=== PATIENT | female | born 1970 | race Caucasian/White ===

== ENCOUNTER 2023-12-13 16:57 | Emergency (ER) | payer SELFPAY ==
[2023-12-13 18:03] VITALS: BP 175/81; PULSE 55; RESP 16; TEMP 36.6; O2SAT 100; BMI 23.4
--- NOTE | 2023-12-13 18:07 | ED.EXTPRO ---
HPI - Extremity Problem General Chief complaint: Skin/Abscess/Foreign Body Stated complaint: ? right foot infection Time Seen by Provider: 12/13/23 18:10 Source: patient Mode of arrival: ambulatory Limitations: no limitations History of Present Illness ED Provider: Audrey Perkins PA-C HPI Narrative: 53 yo female presents to the ER for evaluation of right lateral foot redness and swelling that started yesterday and got worse today. she was seen yesterday by her outpatient coding specialist for dry, cracked heels which she routinely sees them for. she states she had mild swelling and redness yesterday along with a fluid filled blister. today the redness and swelling worsened. she popped the blister and clear fluid came out. no injuries. no recent insect bites. no fevers. no hx inflammatory arthritis or gout. MD Complaint: joint swelling and joint pain Onset (ago): day(s) Pain Consistency: constant Location: right and lower extremity Severity scale (1-10): 5 Quality: aching Radiation: proximal Relieving factors: immobilization, elevation and rest Exacerbating factors: range of motion, weight bearing, walking and palpation Associated symptoms: denies other symptoms Related Data Previous Rx's ?Medication ?Instructions ?Recorded cephalexin 500 mg capsule 500 mg PO Q6H 7 days #28 caps 12/13/23 doxycycline monohydrate 100 mg 100 mg PO BID #14 caps 12/13/23 capsule Allergies Allergy/AdvReac Type Severity Reaction Status Date / Time No Known Allergies Allergy Verified 12/13/23 18:04 Review of Systems Review of Systems: Yes all other systems are reviewed and are negative PMFSH Social History Social History Advance Directives: Yes Advance Directives Information Provided: No Advance Directives on File: No Do you have a plan to hurt others: No Plan Physical Exam Vital Signs: Vital Signs: Last Vital Signs Temp 97.9 F 12/13/23 18:03 Pulse 55 12/13/23 18:03 Resp 16 12/13/23 18:03 BP 175/81 H 12/13/23 18:03 Pulse Ox 100 12/13/23 18:03 O2 Del Method Room Air 12/13/23 18:03 BMI result Body Mass Index 23.4 Appearance: Alert. Oriented X3. No acute distress. HEENT: normal inspection CVS: Normal heart rate and rhythm. Pulses normal. Respiratory: No respiratory distress. Skin: Skin warm and dry. Normal skin color. Normal skin turgor. No rashes. Extremities: right lateral foot and distal ankle with erythema, warmth, swelling, small fluid filled blister on the border of the heel. Neuro: Oriented X 3. No motor deficit. No sensory deficit. Medical Decision Making Medical Decision Making MDM Narrative: 53 yo female presenting for a possible infection in her right lateral foot/ankle. FROM of the ankle and foot. no evidence of septic joint or gout. minimal tenderness. blister w/ clear drainage. area is warm and erythematous c/w cellulitis. no calf pain or swelling to suggest DVT. exam c/w cellulitis. will treat with PO abx. area marked with skin marker. comfortable with discharge home with close monitoring and outpatient follow up. return precautions were discussed Differential Diagnosis Differential Diagnoses: The differential diagnosis associated with the presentation includes cellulitis, septic joint, gout Admission/Observation Consideration of admission/observation: Escalation of care including admission/observation considered Tests considered The following testing was considered but not selected: basic lab workup and XR considered Prescription Management I considered prescription management with: Pain Medication and Antibiotic Critical Care Time Critical Care Time Critical Care Time: No Discharge Plan Discharge Clinical Impression: Cellulitis Patient Disposition: Home, Self-Care Instructions: Cellulitis (DC), Warm Compress or Soak (ED) Additional Instructions: Take the prescribed antibiotics as directed, complete the entire course and do not miss any doses Use warm compresses to the area 2-3 times per day If you develop new or worsening symptoms call 911 or come back to the ER for further evaluation. Prescriptions: New doxycycline monohydrate 100 mg capsule 100 mg PO BID Qty: 14 0RF cephalexin 500 mg capsule 500 mg PO Q6H 7 Days Qty: 28 0RF Referrals: Freeman Farley DO [Primary Care Provider] - Stand Alone Forms: Work/School Release Discharge Date/Time: 12/13/23 18:21 Print Language: Polish
== END 2023-12-13 18:21 | disposition home or self-care (01) ==
PROVIDERS: Emergency Provider Emergency Medicine; PCP Family Medicine
DX: L03.115 Cellulitis of right lower limb (principal); M79.671 Pain in right foot
CPT/HCPCS: 99281; 99283

== ENCOUNTER 2024-04-22 05:37 | Emergency (ER) | payer BC, SELFPAY ==
--- NOTE | ~2024-04-22 | XR_ITS ---
CLINICAL HISTORY: shortness of breath 2 view chest x-ray Comparison: None Findings: Faint right lower lobe density seen best on the lateral view. Normal size heart. No acute fracture. IMPRESSION: Faint right lower lobe density. Correlation for early pneumonia. This document has been electronically signed by: German Kam MD on 04/22/2024 06:13:03
[2024-04-22 05:39] VITALS: BP 142/82; PULSE 77; RESP 20; TEMP 37; O2SAT 99; BMI 23.4
[2024-04-22 07:08] LABS: Influenza A PCR NEGATIVE (Negative); Influenza B PCR POSITIVE (Negative); Resp Syncy Virus RNA Qual PCR NEGATIVE (Negative); SARS COV2 PCR INHOUSE NEGATIVE (Negative)
--- NOTE | 2024-04-22 09:39 | ED.SOB ---
HPI - SOB/Dyspnea General Chief Complaint: Dyspnea Stated Complaint: diff breathing Time Seen by Provider: 04/22/24 09:10 Source: patient, RN notes reviewed and old records reviewed Mode of arrival: ambulatory History of Present Illness ED Provider: Eulalia Lewis PA-C HPI Narrative: 54-year-old female with a past medical history of Influenza B (04/14/24) presenting to the ED complaining of persistent myalgias, fatigue, SOB since having the flu. Denies fever, chills, chest pain, travel, pedal edema, abdominal pain, nausea/vomiting. + multiple sick contacts Related Data Previous Rx's ?Medication ?Instructions ?Recorded cephalexin 500 mg capsule 500 mg PO Q6H 7 days #28 caps 12/13/23 doxycycline monohydrate 100 mg 100 mg PO BID #14 caps 12/13/23 capsule albuterol sulfate 90 mcg/actuation 2 puff inhalation Q4-6H PRN 04/22/24 aerosol inhaler shortness of breath or wheezing #6.7 grams amoxicillin 500 mg tablet 1,000 mg (2 x 500 mg) PO TID 7 04/22/24 days #42 tabs azithromycin 250 mg tablet See Rx Instructions PO .COMPLEX #6 04/22/24 tabs benzonatate 100 mg capsule 100 mg PO TID PRN cough #14 caps 04/22/24 Allergies Allergy/AdvReac Type Severity Reaction Status Date / Time No Known Allergies Allergy Verified 04/22/24 05:41 Review of Systems Review of Systems: Yes all other systems are reviewed and are negative Constitutional: Constitutional: Reports as per [facility] Past Medical History Attestation statement: The following information was validated with the patient. Source: old records reviewed Social History Social History Advance Directives: No Advance Directives Information Provided: Yes Do you have a plan to hurt others: No Plan Physical Exam Vital Signs: Vital Signs: Last Vital Signs Temp 98.4 F 04/22/24 10:47 Pulse 70 04/22/24 10:47 Resp 16 04/22/24 10:47 BP 112/67 04/22/24 10:47 Pulse Ox 99 04/22/24 05:39 O2 Del Method Room Air 04/22/24 10:47 BMI result Body Mass Index 23.4 Const: General: cooperative, healthy appearing and no acute distress Orientation/consciousness: patient oriented x3 Limitations: no limitations HEENT: Other: + left-sided submandibular lymphadenopathy Head: Yes normal to inspection and Yes atraumatic Ears: hearing grossly normal bilaterally General nose exam: Normal external nose present Face and sinus: Yes normal facial exam Mouth: Normal oral and palatal mucosa present Throat: Yes posterior oropharynx normal, Yes tonsils normal, Yes uvula midline, No peritonsillar mass and No uvular edema Eyes: General: appearance normal, both eyes and all related structures EOM: EOMs intact bilaterally Neck: Neck: Yes normal visual inspection and Yes no meningeal signs Resp: Effort & Inspection: normal respiratory effort and no respiratory distress Auscultation: clear to auscultation bilaterally and crackles on the right at the base Cardio: Rate: regular rate Heart sounds: S1 normal heart sound present and S2 normal heart sound present GI: Inspection: Yes normal to inspection Palpation (GI): Soft to palpation, nontender, no guarding and not rigid : General: Yes no CVA tenderness Back/Spine/Pelvis: Back: no CVA tenderness Skin: Rashes: no rashes Wounds: no wounds Neuro: General: patient oriented x3, tone normal and no meningeal signs Cranial nerves: Yes CN's II-XII intact bilaterally Gait exam (Neuro): Normal gait present Extrem: General: Yes normal to inspection Course Course Course Narrative: -influenza B positive XR chest 2V IMPRESSION: Faint right lower lobe density. Correlation for early pneumonia. Results discussed with patient including worrisome signs and symptoms and strict return precautions, and when to return to the emergency department. They verbalized understanding and feel safe for discharge at this time. Medications Administered Discontinued Medications Generic Name Dose Route Start Last Admin Trade Name Freq PRN Reason Stop Dose Admin Albuterol/Ipratropium 3 ml 04/22/24 09:34 04/22/24 09:50 Albuterol/Iprat 2.5/0.5mg 3 Ml Ampul.Neb INHALE 04/22/24 09:35 3 ml ONCE ONE Administration Medical Decision Making Medical Decision Making [facility] Narrative: 0943: 54-year-old female with a past medical history of Influenza B (04/14/24) presenting to the ED complaining of persistent myalgias, fatigue, SOB since having the flu. On exam vital signs stable, afebrile, NAD, nontoxic appearing, talking in complete sentences, no respiratory distress, right basilar crackles appreciated. Concern for continued viral illness vs pneumonia. Lower suspicion for ACS/PE. Unlikely severe sepsis. Plan: Viral testing, CXR, albuterol neb per patient request Please refer to course for remaining clinical decision making, interpretation of labs/imaging results, and discussions with consultants and/or family members. Differential Diagnosis Differential Diagnoses: The differential diagnosis associated with the presentation includes As above Admission/Observation Consideration of admission/observation: Escalation of care including admission/observation considered Lab Data MDM Lab Attestation statement: I reviewed the patient's lab results. Labs: Lab Results 04/22/24 Range/Units 06:08 Influenza Type A (PCR) NEGATIVE (Negative) Influenza Type B (PCR) POSITIVE A (Negative) RSV RNA Qual (PCR) NEGATIVE (Negative) SARS-CoV-2 RNA (RT-PCR) NEGATIVE (Negative) Independent Interpretation I performed an independent interpretation of an: Plain X-Ray Radiology Impression Discussion of test interpretation with radiology: I have reviewed the radiologist's reading. External Record Review External record reviewed: Inpatient record, Office record, Outpatient record, Prior outpatient labs, Prior outpatient radiology, Primary care record and Outside ED record Tests considered The following testing was considered but not selected: As above Prescription Management I considered prescription management with: Pain Medication, Antiviral and Antibiotic Social Determinants Patient?s care significantly limited by Social Determinants of Health including: Other Social Determinant of Health Discharge Plan Discharge Clinical Impression: Pneumonia, Influenza Patient Disposition: Home, Self-Care Instructions: Influenza (DC), Community Acquired Pneumonia (DC) Additional Instructions: You have a the flu and pneumonia. Amoxicillin and azithromycin or antibiotics please take as prescribed until completion Navyasallakshmi Knox for cough, take as needed No antibiotics are indicated at this time Make sure you are staying hydrated. Drink plenty of fluids. Rest Alternate Tylenol and Motrin at home as needed for body aches and fever Follow-up with your doctor. If symptoms persist or worsen return to the emergency department *If you are a child & not tolerating liquid or urinating for more than 6 hours, or fevers are uncontrolled with medications at home, return to the emergency department* Prescriptions: New amoxicillin 500 mg tablet 1,000 mg PO TID 7 Days Qty: 42 0RF azithromycin 250 mg tablet See Rx Instructions .ROUTE .COMPLEX Qty: 6 0RF Rx Instructions: take 500 mg today (day 1), then 250 mg for 4 days (days 2-5) benzonatate 100 mg capsule 100 mg PO TID PRN (Reason: cough) Qty: 14 0RF albuterol sulfate 90 mcg/actuation HFA aerosol inhaler 2 puff inhalation Q4-6H PRN (Reason: shortness of breath or wheezing) Qty: 6.7 0RF No Action doxycycline monohydrate 100 mg capsule 100 mg PO BID Qty: 14 0RF cephalexin 500 mg capsule 500 mg PO Q6H 7 Days Qty: 28 0RF Referrals: Freeman Farley DO [Primary Care Provider] - 3 days Stand Alone Forms: Work/School Release Interventions: ED Discharge Assessment Last Done: 04/22/24 10:47 Discharge Date/Time: 04/22/24 10:56 Print Language: Danish
--- OUTSIDE RECORDS SUMMARY | 2024-04-22 09:44 | XMS_ITS | Data Portability ---
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 Plan of Treatment Reminders Order Date Submit Date Provider Last Modified By Organization Details Last Modified Time Details Appointments None recorded. Lab rapid strep group A, throat 2022 023 [email or web address] [facility], [address] [place] [address], [id number], 09:14:21 Referral None recorded. Procedures None recorded. Surgeries None recorded. Imaging None recorded. Medication Orders Augmentin 875 mg-125 mg tablet 2022 023 [facility] #[id number], [address] [place], [address], 3 09:14:25 prednisone 20 mg tablet 2022 023 [facility] #[id number], [address] [place], [address], 3 09:14:24 fexofenadin e-pseudoeph edrine ER 180 mg-240 mg tablet,ext. release 24 hr 2022 023 [facility] #[id number], [address] [place], [address], 3 09:14:25 Patient TargetsNo targets recorded. Patient Instructions Encounter Date Encounter Id Patient Instructions Last Modified By Organization Details Last Modified Time 07/09/2022 [id number] Acute Sinusitis: Care Instructions Not available 07/09/2022 09:14:21 Sinusitis is an infection of the lining of the sinus cavities in your head. Sinusitis often follows a cold. It causes pain and pressure in your head and face. In most cases, sinusitis gets better on its own in 1 to 2 weeks. But some mild symptoms may last for several weeks. Sometimes antibiotics are needed. if you are having problems. It's also a good idea to know your test results and keep a list of the medicines you take. How can you care for yourself at home? Take an yqog-zhs-mfvucnt pain medicine. Avoid Ibuprofen, Aleve and Aspirin if . If the doctor prescribed antibiotics, take them as directed. Do not stop taking them just because you feel better. You need to take the full course of antibiotics. Be careful when taking qkqp-bdy-curwjno cold or influenza (flu) medicines and Tylenol at the same time. Many of these medicines have acetaminophen, which is Tylenol. Read the labels to make sure that you are not taking more than the recommended dose. Too much acetaminophen (Tylenol) can be harmful. Breathe warm, moist air from a steamy shower, a hot bath, or a sink filled with hot water. Avoid cold, dry air. Using a humidifier in your home may help. Follow the directions for cleaning the machine. Use saline (saltwater) nasal washes. This can help keep your nasal passages open and wash out mucus and bacteria. You can buy saline nose drops at a grocery store or drugstore. Or you can make your own at home by adding 1 teaspoon (5 millilitres) of salt and 1 teaspoon (5 millilitres) of baking soda to 2 cups (500 mL) of distilled water. If you make your own, fill a bulb syringe with the solution, insert the tip into your nostril, and squeeze gently. Blow your nose. Put a hot, wet towel or a warm gel pack on your face 3 or 4 times a day for 5 to 10 minutes each time. Try a decongestant nasal spray like oxymetazoline (Drixoral). Do not use it for more than 3 days in a row. Using it for more than 3 days can make your congestion worse. Not available 07/09/2022 09:13:32 Reason for Referral None Reported. Results Created Date Observation Date Name Description Value Unit Range Abnormal Flag Note LastModifiedBy Organization Detail LastModifiedTime 07/10/1907/09/2022 rapid strep group A, throa t Unknown Analyte Normal = Negati ve Not Available [address] [address] [place], [address], 07/09/2022 08:56:21 07/10/1907/09/2022 rapid strep group A, throa t Unknown Analyte negati ve Not Available [address] [address] [place], [address], 07/09/2022 08:56:21 Result Notes None recorded. Problems Name Problem SNOMED Code Status Onset Date Resolution Date Notes Provider Name and Address Organization Details Recorded Time Environmental allergy [id number] Active 2022 REBEKAH Zapien - [facility] 08:55:34 Problem Notes None recorded. Medical Equipment None Reported. Allergies No known drug allergies Medications Name Sig Start Date Stop Date Status Note LastModified by Organization Details LastModified Time amoxicillin 500 mg capsule TAKE 4 CAPSULES BY MOUTH 1 HOUR PRIOR TO DENTAL APPOINTME NT 07/09 completed Not Available Not Available Not Available prednisone 20 mg tablet TAKE 2 TABLETS EVERY DAY BY MOUTH IN THE MORNING FOR 3 DAYS. active Not Available Not Available No t Available alprazolam 0.25 mg tablet TAKE 1 TABLET BY MOUTH EVERYDAY AT BEDTIME active Not Available Not Available No t Available sertraline 50 mg tablet TAKE 1 TABLET BY MOUTH EVERY DAY active Not Available Not Available No t Available amoxicillin 875 mg-potassiu m clavulanate 125 mg tablet TAKE 1 TABLET BY MOUTH EVERY 12 HOURS WITH MEALS FOR 10 DAYS active Not Available Not Available No t Available Candis-D 24 Hour 180 mg-240 mg tablet,exte nded release TAKE 1 TABLET EVERY DAY BY MOUTH IN THE EVENING FOR 10 DAYS. active Not Available Not Available No t Available aspirin active Not Available Not Avail able Not Available lorazepam active Not Available Not Queta ilable Not Available sodium fluoride 1.1 %-potassium nitrate 5 % dental paste BRUSH TEETH 1 TIME DAILY, DO NOT RINSE 07/09 completed Not Available Not Available Not Available Vagifem 10 mcg vaginal tablet INSERT 1 TABLET VAGINALLY DAILY FOR 14 DAYS THEN TWICE WEEKLY 07/09 completed Not Available Not Available Not Available Vitals Date Recorded Body height Body mass index (BMI) Body weight Pain severity - 0-10 verbal numeric rating [Score] - Reported Respiratory rate Oxygen saturation Oxygen saturation in Arterial blood by Pulse oximetry Heart rate Body temperature Systolic blood pressure Diastolic blood pressure Provider Name and Address Organization Details Last Updated DateTime 3 167.64 cm 23.4 kg/m2 64276.8 9 g 9 20 /min 98 % 98 % 63 /min 98 [degF] 117 mm[Hg] 81 mm[Hg] Marie Wheat YEOXIN [facility] 08:58:03 Social History Question Answer Notes LastModified by [facility] Details LastModified Time Tobacco Smoking Status Never Smoker Marie son PA [facility] 07/09/2022 08:55:57 What Is Your Level Of Alcohol Consumption? None Information not available 07/09/2022 Have You Had Direct Contact, Or Contact During Intimacy, With Monkeypox Rash, Scabs, Or Body Fluids From A Person With Monkeypox? No Information not available 07/09/2022 Do You Use Any Illicit Or Recreational Drugs? No Information not available 07/09/2022 Have You Recently Traveled Abroad? No Information not available 07/09/2022 Do You Or Have You Ever Used Any Other Forms Of Tobacco Or Nicotine? No Information not available 07/09/2022 Sex: Unknown Functional Status None recorded. Mental Status None recorded. Family History Relationship Description Onset Age of this Age Resolved Age Notes LastModified by Organization Details LastModified Time Father No current problems or disability Not available 07/09 08:55:42 Mother No current problems or disability Not available 07/09 08:55:42 Medical History No medical history recorded. Gynecological HistoryNo gynecological history recorded. Obstetrics History GPAL:G 0 P 0 0 0 0 Past Encounters Encounter ID Performer Location Encounter Start Date Encounter Closed Date Diagnosis/Indication Diagnosis SNOMED-CT Code Diagnosis ICD10 Code Diagnosis Note [id number] [address] [facility] [place] [address] 11/01/2020 13:05:05 11/01/2020 15:43:41 [id number] [address] [facility] [place] [id number] 11/24/2016 08:07:30 11/24/2016 09:03:18 [id number] [address] [facility] [place] [address] 05/13/2016 09:20:16 05/13/2016 10:53:11 [id number] [address] [facility] [place] [id number] 11/23/2016 15:23:31 11/23/2016 16:49:52 [id number] Roámn Calle NP [address] [facility] [place] [address] 07/09/2022 08:11:47 07/09/2022 09:18:58 Acute sinusitis 27659539 J01.90 Health Concerns Section Related Observation LastModified by Organization Detai ls LastModified Time None Recorded Concern Status LastModified by Organization Details LastModified Time None Recorded Advance Directives Directive None Recorded Payers Encounter Date Sequence Insurance Name Policy Number Policy Edwards Covered Member ID Edwards Member ID Guarantor Name 05/13/2016 1 [facility] [id number] Chuck Millard [id number] Bomb[address]ier 11/01/2020 1 [facility] [place] [id number] Chuck Hardwickardier [id number] Bombardier 07/09/2022 1 [facility]: [facility] [id number] Chuck Hardwickardier [id number] [address] Bombardier Notes Date Note Type Note Provider Name and Address Organization Details Recorded Time 07/09/2022 text/html Sinus Complaints UCReported bypatient.Location: sinus pain;facial pain;sinus pressure Associated Symptoms:no fever; no nausea or vomiting; no sore throat; no ear fullness; no nasal itching; no eye itching; no dizziness;difficult y breathing;Post nasal drip;nasal passage blockage;cough Onset/Timing:worse in am; worse in pm Quality:minimal discomfort;worsenin g; clear Duration:frequent Severity:moderate Context:no recent upper respiratory infection; no recent sick contacts; not worse with seasonal allergen exposure;worse with environmental exposure Risk Factors:no current smoking or tobacco use; no history of nasal trauma Alleviating factors:oral steroids Aggravating factors:worse during an upper respiratory infection (a cold); worse with excess fatigue Prior Treatmentoral decongestant Román Calle NP [address] [place], [address], [place] - [facility] 07/09/2022 09:14:50 OBGyn Episode No OBEpisode recorded.
--- OUTSIDE RECORDS SUMMARY | 2024-04-22 09:44 | XMS_ITS | Continuity of Care Document ---
Author Organization [facility] [place] lt Address [address] [place] [address]- Care Team Providers Care Rn Case Management Name Role Phone Freeman Farley DO Primary Care Physician [place] [facility] [place] - 03/27/24 [facility] Adult [address] [place] [address]- Attending Physician: AdmBryan coughlin Admitting Physician: AdmtrBryan Referring Physician: Admtr [id number] Encounter Type: Triage Allergies, Adverse Reactions, Alerts Substance Criticality Severity Reaction Reaction Severity Status shellfish Active Immunizations Given and Recorded Vaccine Date Status Refusal Reason influenza virus vaccine, inactivated 1 01/02/24 Gi jeffery influenza virus vaccine, inactivated 2 01/31/23 Gi jeffery influenza virus vaccine, inactivated 11/17/21 Greg rded influenza virus vaccine, inactivated 12/13/20 Greg rded influenza virus vaccine, inactivated 12/06/17 Greg rded influenza virus vaccine, inactivated 3 11/28/16 Re corded influenza virus vaccine, inactivated 4 12/02/14 Re corded influenza virus vaccine, inactivated 5 12/18/13 Gi jeffery influenza virus vaccine, inactivated 04/29/13 Give n SARS-CoV-2 (COVID-19) mRNA-1273 vaccine 12/08/21 R ecorded tetanus-diphtheria toxoids (Td) 08/04/21 Given tetanus-diphtheria toxoids (Td) 11/23/16 Recorded SARS-CoV-2 (COVID-19) mRNA BNT-162b2 vac 02/25/21 Recorded SARS-CoV-2 (COVID-19) mRNA BNT-162b2 vac 05/20/20 Recorded SARS-CoV-2 (COVID-19) mRNA BNT-162b2 vac 04/28/20 Recorded Influenza Virus Vaccine (oldterm) 01/09/20 Recorde d Influenza Virus Vaccine (oldterm) 11/25/18 Recorde d hepatitis B adult vaccine 03/23/17 Given hepatitis B adult vaccine 6 02/23/17 Given influ virus vac, H1N1, inactive(oldterm) 7 12/11/11 Given FluLaval (oldterm) 11/11/11 Given Tet/Diphth/Acel, Pertussis (oldterm) 08/30/11 Give n 1Result Comment: Flu Regular Dose ND: 88647-280-81 2Result Comment: 13890-323-68 Check list done 3Result Comment: [11/29/2016] RECIEVED AT [employer] [facility] 4Result Comment: [12/03/2014] GIVEN AT [employer] [facility] 5Admin Note: [employer] [facility] 6Result Comment: [02/23/2017] [facility]:[id number] 7Admin Note: left deltoid Problem List Condition Confirmation Course Effective Dates Status Health St at Informant Adjustment disorder with anxiety Confirmed Active Allergic Rhinitis Confirmed Active Alopecia areata kenalog Confirmed Active Congenital Cataract, Unspecified Confirmed Active Eczema Confirmed Active Eosinophilia Confirmed 03/14/19 Active Family history of cervical cancer 1 Confirmed Active H/O angioedema ? nuts Confirmed 11/18/20 Active Situational insomnia Confirmed 08/11/20 Active Insomnia Confirmed Active Localized deposits of fat 2 Confirmed Active Paget's disease of bone left iliac 2020 MRI/Endocrinology 2021/monitor re symptoms/alk phos Confirmed 12/13/20 Active Panic attack Confirmed Active Physical exam Confirmed Active S/P AVRBovine 2011/abx propohylaxis aware Confirmed Active Situational anxiety Confirmed Active Vitamin D deficiency Confirmed 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 Procedures Procedure Date Related Diagnosis Body Site Status Echocardiogram 1 03/10/21 Complete d CXR - Chest X-ray 2 04/26/17 Compl eted Echocardiography, transthora cic, real-time with image documentation (2D), includes M-mode recording, when performed, complete, with spectral Doppler echocardiography, and with color flow Doppler echocardiography 3 10/06/14 Completed Echocardiography, transthora cic, real-time with image documentation (2D), includes M-mode recording, when performed, complete, with spectral Doppler echocardiography, and with color flow Doppler echocardiography 4 12/28/11 Completed Echocardiography, transthora cic, real-time with image documentation (2D), includes M-mode recording, when performed, complete, with spectral Doppler echocardiography, and with color flow Doppler echocardiography 5, 6 08/11/11 Completed Echocardiography, transthora cic, real-time with image documentation (2D), includes M-mode recording, when performed, complete, with spectral Doppler echocardiography, and with color flow Doppler echocardiography 7 03/21/11 Completed 1normal LV chamber size mild LVH normal wall motion EF 60-65 1+ MR trace insufficiency of bioprosthetic aortic valve compared to 2019 decreased tricuspid regurgitation 2nad 3Atrium is normal normal left ventricular size rate she was normal right ventricle normal bioprosthetic aortic valve well-seated normal mitral valve trace mitral regurgitation aortic root is normal noeffusion ejection fraction is 60% no changes since 2013 study 4ef 60-65% normal functioing bioprosthetic aortic valve 5normal ef;biopraosthtic aortic valve 6ef 65-70% 7ef 60-65% functional valve Social History Social History Type Response Smoking Status Former smoker; Type: Cigarettes; Number of years: 19; Total pack years: 15; Started at age: 16; Stopped at age: 37; entered on: 02/10/14 Sex Sex Representation Female (finding) Exercise stress test study * Event Display: Exercise Stress Test Report Authored Date: Cardiology * Event Display: Non BH Cardiovascular Results Authored Date: * Event Display: Cardiology Office Note, Non-BH Authored Date: * Event Display: Non BH Cardiovascular Results Authored Date: * Event Display: Cardiology Office Note, Non-BH Authored Date: Laboratory * Event Display: Non BH Lab Results Authored Date: * Event Display: Non BH Lab Results Authored Date: Cardiology Consult note * Event Display: Consult Note Cardiology Authored Date: MG Breast Views * Event Display: MM Mammogram Authored Date: Radiology * Lashaun Nation: PERFORM Event Display: Radiology Results Scanned Authored Date: * Shelby Orozco: PERFORM Event Display: Radiology Results Scanned Authored Date: * Shelby Orozco: PERFORM Event Display: Radiology Results Scanned Authored Date: Patient Care team information Care Team Personnel Name: Michelle Paiz RN Position: [facility] RN Member Role: Primary Care Nurse Name: Destiney Toscano RN Position: [facility] ED RN W/OE and Tasks Member Role: Primary Care Nurse Name: Betty Vivar RN Position: [facility] ED RN W/OE and Tasks Member Role: Primary Care Nurse Name: Arlyn Mcgovern RN Position: [facility] OB RN Member Role: Primary Care Nurse Name: Freeman Farley DO Position: [facility] Physician - Primary Care Member Role: PCP Address: [address] [place] [address] [place] [address]- Telecom: Name: Jo Ann Aggarwal MD Position: [facility] CALCULUS PROFESSOR MD Member Role: Lifetime CALCULUS PROFESSOR Physician Address: [address] [place] [address] [facility] [place] [address]- Telecom: Care Team Related Persons Name: GERDA SALDIVAR Insurance Providers Guarantor name: MARY YARIEL Health Plan Information #: 1 Payer: HMO [employer] Member Number: NA Policy Number: NA Group Number: NA
--- OUTSIDE RECORDS SUMMARY | 2024-04-22 09:44 | XMS_ITS | Encounter Summary ---
Author Organization [facility] Address [address] [place] [address] Care Team Providers Care Sports Announcer Name Role Phone Freeman Farley DO Primary Care Provider [phone] Reason for Referral * Consultation (Routine) - Pending Review Specialty Diagnoses / Procedures Referred By Contact Referred To Contact Cardiothoracic Surgery Diagnoses Nonrheumatic aortic valve disorder Ac Hector MD [address] [address] Phone: tel: fax: Jero Cordon MD [facility] [address] [place] [address] Phone: tel: fax: Referral ID Status Reason Start Date Expiration Date Visits Requested Visits Authorized [id number] Pending Review Specialty Services Required 04/11/2024 04/11/2025 1 1 Reason for Visit * Reason Comments Follow-up * Other Medical (Routine) - Authorized Specialty Diagnoses / Procedures Referred By Contac t Referred To Contact Cardiology Diagnoses Return in about 3 months (around 04/11/2024). CR/EMILY pt] 03/07/24 appt nesha w/ptrozina Procedures OFFICE VISIT Freeman Farley DO [address] [place] [address] Phone: tel: fax: [facility] [address] [facility] [address] [place] [address] Phone: tel: fax: Referral ID Status Reason Start Date Expiration Date V isits Requested Visits Authorized [id number] Authorized 04/11/2024 05/06/2024 2 2 Encounter Details Date Type Department Care Team (Late st Contact Info) Description 04/11/2024 9:50 AM EST Office Visit [facility] [address] [facility] [address] [place] [address] Ac Hector MD [address] [place] [address] Nonrheumatic aortic valve disorder (Primary Dx) Social History Tobacco Use Types Packs/Day Years Used Date Smoking Tobacco: Former Smokeless Tobacco: Never Alcohol Use Standard Drinks/Week Comments Yes 0 (1 standard drink = 0.6 oz pur e alcohol) socially Comments Unknown Sex and Gender Information Value Date Recorded Sex Assigned at Not on file Legal Sex Female 11:37 AM EST Gender Identity Not on file Sexual Orientation Not on file documented as of this encounter Last Filed Vital Signs Vital Sign Reading Time Taken Comments Blood Pressure 140/90 04/11/2024 9:59 AM EST Pulse 70 04/11/2024 9:59 AM EST Temperature - - Respiratory Rate - - Oxygen Saturation 99% 04/11/2024 9:59 AM EST Inhaled Oxygen Concentration - - Weight 69.4 kg (153 lb) 04/11/2024 9:59 AM EST Height 167.6 cm (5' 6 ) 04/11/2024 9:59 AM EST Body Mass Index 24.69 04/11/2024 9:59 AM EST documented in this encounter Progress Notes * Ac Hector MD - 04/11/2024 9:50 AM ESTAssociated Problem(s): Nonrheumatic aortic valve disorder Orders: Ambulatory referral to Cardiothoracic Surgery; Future * Ac Hector MD - 04/11/2024 9:50 AM EST Images from the original note were not included. [facility] Cardiology Follow-up Note PCP: Freeman Farley, HPI: Jessica Millard is a 54 y.o. old female with Jessica Millard is a 53 yr. old Female with history of aortic valve replacement with a bioprosthetic aortic valve in . Patient had her surgery at [facility]. She had a unicupsid valve initially. Echocardiogram completed 04/2022 showed mildly dilated left atrium, normal left ventricular chamber size, mild concentric left ventricular hypertrophy with normal regional wall motion and LVEF of 60%.Elevated aortic valve gradients. Trace to mild aortic insufficiency. Mild mitral regurgitation. Patient states that her initial surgery was completed due to congenital defect of the unicuspid valve which is why she had surgery at [facility]. She was able to have a daughter after her surgery. Bioprosthetic was chosen at that time in order to avoid coumadin. 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 She had exercise testing whereher exercise capacity was limited, but this was due in part to lack of augmentation of BP and she was stopped earlier. She feels she could have gone further if allowed to. Given her minimal symptoms and busy life schedule we opted to continue to monitor for symptoms as well as decide where she would like to potentially have surgery. She states she feels limited with high levels of exertion but not currently limited in everyday activities. She would like to see Dr. Cordon at [facility] to evaluate her for re-op aortic valve replacement. ACTIVE MEDICATIONS: Outpatient Medications Marked as Taking for the 04/11/24 encounter (Office Visit) with Ac Cohen MD Medication Sig Dispense Refill ALPRAZolam (XANAX) 0.25 mg tablet Take 1 tablet (0.25 mg total) by mouth at bedtime as needed. aspirin 81 mg EC tablet Take 1 tablet (81 mg total) by mouth 1 (one) time each day. cholecalciferol (VITAMIN D-3) 50 mcg (2,000 unit) capsule Take 1 capsule (2,000 Units total) by mouth 1 (one) time each day. EPINEPHrine (EpiPen 2-Feng) 0.3 mg/0.3 mL injection Inject 0.3 mL (0.3 mg total) as directed 1 (one)time. as directed fluticasone furoate (Arnuity Ellipta) 50 mcg/actuation blister with device inhaler Inhale 2 sprays by mouth 1 (one) time each day if needed. sertraline (ZOLOFT) 50 mg tablet Take 1 tablet (50 mg total) by mouth 1 (one) time each day. PAST MEDICAL HISTORY: Patient Active Problem List Diagnosis Nonrheumatic aortic valve disorder ALLERGIES: Allergies Allergen Reactions Shellfish Derived FAMILY HISTORY: Family History Problem Relation Name Age of Onset Bladder Cancer Mother COPD Father Hypertension Father Asthma Sister Cervical cancer Sister Hypertension Paternal Grandmother Stroke Paternal Grandmother SOCIAL HISTORY: Social History Tobacco Use Smoking status: Former Smokeless tobacco: Never Substance Use Topics Alcohol use: Yes Comment: socially PHYSICAL EXAM: Vitals: 04/11/24 0959 BP: (!) 154/72 Pulse: 70 SpO2: 99% Weight: 69.4 kg (153 lb) Height: 1.676 m (66 ) Gen: Stated age, well nourished, sitting up NAD HEENT: MMM no LAD, no JVD Pulm: non-labored, CTAB, no wheezing Heart: RRR, late peaking Ssytolic murmur at base toward carotids. Abd: Soft NT/ND, +BS, no tenderness Extrem: no c/c/e, no ulcers on LE Skin: no rashes Vasc: 2+ RP no carotid bruit Neuro: Alert oriented x 3, UE strength symmetric intact Psych: Mood good, Affect congruent EKG: No results found for this or any previous visit (from the past 4464 hour(s)). TESTING: No results found for: NA , K , CL , CO2 , GLUCOSE , BUN , CREATININE , CALCIUM , PROT , ALBUMIN , BILITOT , AST , ALT , URICACID , PHOS , MG , ALKPHOS , CKTOTAL , EGFR , No results found for: WBC , HGB , HCT , MCV , PLT , No results found for: CHOL No results found for: HDL No results found for: LDLCALC No results found for: TRIG No results found for: CHOLHDL , and No results found for: TSH ASSESSMENT/PLAN: Assessment & Plan Nonrheumatic aortic valve disorder Orders: Ambulatory referral to Cardiothoracic Surgery; Future Bioprosthetic aortic stenosis Confirmed severe stenosis by YURIY. Not clearly significantly symptomatic though she was stopped a little early on treadmill due to blood pressure dropping (though only mild drop). We spent a fair amount of time discussing options and timing. At this point I would recommend she consider reop with a mechanical valve given she is quite healthy and would likely outlast multiple bioprosthetic valves atthis time. Additionally given the base line high aortic valve gradients in her #21 bioprosthetic I am not sure a valve in valve TAVR would be effective. Will have her discuss case with Dr. Cordon. Hyperlipidemia Mild Elevation no clear need for statin unless CAD noted on future cath needed prior to aortic valve surgery. I have applied the code G2211 to this patient???s visit as the primary provider managing aortic valve stenosis leading to the work up, and management associated with the medical care of this patient.This patient???s serious and complex medical conditions require continued management and coordination through my office. I have reviewed all information as it pertains to the management of this patient for final approval. The [facility] team will continue to co-manage this patient following the plan of care as established by my initial visit and as per AHA guidelines for ongoing management and surveillance of above listed conditions. This will include medication titration, initiation of appropriate medications and further t itration, and diagnostic studies to manage this disease process. documented in this encounter Plan of Treatment Scheduled Referrals Name Type Priority Associated Diagnoses Order Schedule Ambulatory referral to Cardiothoracic Surgery Outpatient Referral Routine Nonrheumatic aortic valve disorder 1 Occurrences starting 04/11/2024 until 04/11/2025 documented as of this encounter Visit Diagnoses Diagnosis Nonrheumatic aortic valve disorder- Primary documented in this encounter Discontinued Medications Medication Sig Discontinue Reason Start Date End Da te clobetasoL (TEMOVATE) 0.05 % ointment Apply topically if needed. Discontinued by another clinician 04/11/2024 fluticasone furoate (Arnuity Ellipta) 50 mcg/actuation blister with device inhaler Inhale 2 sprays by mouth 1 (one) time each day if needed. Discontinued by another clinician 04/11/2024 documented as of this encounter Care Teams Sports Announcer Relationship Specialty Start Date End Date [facility] [place] [place] P[facility] - General 11/14/23 documented as of this encounter
--- OUTSIDE RECORDS SUMMARY | 2024-04-22 09:44 | XMS_ITS | Clinical Summary ---
Author Organization [address] [place] [address] [place] [phone] Phone Care Team Providers Care Ice Cream Machine Operator Name Role Phone Freeman Farley DO Primary Care Provider [phone] Allergies Active Allergy Reactions Criticality Noted Date Comments Shellfish Derived 01/10/2024 Medications ALPRAZolam (XANAX) 0.25 mg tablet Take 1 tablet (0.25 mg total) by mouth at bedtime as needed. Active aspirin 81 mg EC tablet Take 1 tablet (81 mg total) by mouth 1 (one) time each day. Active cholecalcifero l (VITAMIN D-3) 50 mcg (2,000 unit) capsule Take 1 capsule (2,000 Units total) by mouth 1 (one) time each day. Active EPINEPHrine (EpiPen 2-Feng) 0.3 mg/0.3 mL injection Inject 0.3 mL (0.3 mg total) as directed 1 (one) time. as directed Active sertraline (ZOLOFT) 50 mg tablet Take 1 tablet (50 mg total) by mouth 1 (one) time each day. Active clobetasoL (TEMOVATE) 0.05 % ointment Apply topically if needed. 04/11/19 25 Discontinue d(Discontin ued by another clinician) fluticasone furoate (Arnuity Ellipta) 50 mcg/actuation blister with device inhaler Inhale 2 sprays by mouth 1 (one) time each day if needed. 04/11/19 25 Discontinue d(Discontin ued by another clinician) Active Problems Problem Noted Date Diagnosed Date Nonrheumatic aortic valve disorder 01/25/2021 Overview (03/10/2024): Last Assessment & Plan: Patient has history of a and unicuspid aortic valve status post bioprosthetic aortic valve replacement completed at [facility]. She is doing well and denies any cardiac symptoms. We will update an echocardiogram for ongoing surveillance given that her last echocardiogram showed increased gradient. She understands endocarditis prophylaxis and gets dental cleanings regularly. Assessment & Plan (04/11/2024 10:46 AM EST): Orders: Ambulatory referral to Cardiothoracic Surgery; Future Encounters Date Type Department Care Team Description 04/11/2024 9:50 AM EST Office Visit [facility] Cardiology [facility] [address] [place] [phone] Ac Hector MD Nonrheumatic aortic valve disorder (Primary Dx) 04/11/2024 Telephone [facility] Cardiology [facility] [address] [place] [phone] Freeman Farley DO Medical Records from Last 3 Months Surgical History Surgery Date Site/Laterality Comments OTHER SURGICAL HISTORY 12/13/2020 PROCEDURE: HISTORY OTHER; COMMENT: MRI of pelvis pagts left iliac OTHER SURGICAL HISTORY 11/20/2020 PROCEDURE: CT ABD & PELVIS W/CONTRAST OTHER SURGICAL HISTORY 11/20/2020 PROCEDURE: SONO ABDOMEN COMPLETE OTHER SURGICAL HISTORY 11/19/2019 PROCEDURE: HISTORY OTHER; COMMENT: Echocardiogram avr no issue, ef 65 % mild, tr OTHER SURGICAL HISTORY 04/04/2019 PROCEDURE: X-RAY EXAM OF ELBOW OTHER SURGICAL HISTORY 07/15/2018 PROCEDURE: KS ECHO TRANSTHORAC R-T 2D W/WO M-MODE REC COMP OTHER SURGICAL HISTORY 08/10/2017 PROCEDURE: ECHOCARDIOGRAM WITH CONTRAST (DEFINITY) OTHER SURGICAL HISTORY 05/17/2017 PROCEDURE: ECHOCARDIOGRAPHY CONTRAST OTHER SURGICAL HISTORY 05/17/2017 PROCEDURE: OUTSIDE EKG OTHER SURGICAL HISTORY 04/26/2017 PROCEDURE: CHEST X-RAY, COMPLETE/ 4 VIEWS OTHER SURGICAL HISTORY 10/09/2016 PROCEDURE: ECHOCARDIOGRAM WITH CONTRAST (DEFINITY) OTHER SURGICAL HISTORY 10/06/2014 PROCEDURE: ECHOCARDIOGRAPHY CONTRAST OTHER SURGICAL HISTORY 08/12/2013 PROCEDURE: ECHOCARDIOGRAPHY CONTRAST OTHER SURGICAL HISTORY 12/28/2011 PROCEDURE: ECHOCARDIOGRAPHY CONTRAST OTHER SURGICAL HISTORY 08/11/2011 PROCEDURE: ECHOCARDIOGRAPHY CONTRAST OTHER SURGICAL HISTORY 03/21/2011 PROCEDURE: ECHOCARDIOGRAPHY CONTRAST OTHER SURGICAL HISTORY 12/29/2009 PROCEDURE: KS RPLCMT AORTIC VALVE ANNULUS ENLGMENT NONC SINUS; COMMENT: replacement, aortic valve bovine 2011 OTHER SURGICAL HISTORY 03/12/2003 PROCEDURE: CERVICAL LEEP CONE BIOPSY [facility] EX Medical History Medical History Date Comments Allergic rhinitis DX:Allergic rh initis Alopecia areata DX:Alopecia area ta; COMMENT: kenalog Congenital cataract DX:Congenita l cataract Eosinophilia DX:Eosinophilia Family history of cervical cancer DX:Family history of cervical cancer History of angioedema DX:History of angioedema Lateral epicondylitis of right elbow DX:Lateral epicondylitis of right elbow Liver lesion, right lobe DX:Live r lesion, right lobe; COMMENT: sono/ct Paget's disease of bone DX:Paget 's disease of bone; COMMENT: left iliac 2020 MRI S/P Avr DX:S/P AVR; COMM ENT: Bovine 2011/ abx prophylaxis aware Situational anxiety DX:Situation al anxiety Situational insomnia DX:Situatio nal insomnia Streptococcal bacteremia DX:Stre ptococcal bacteremia Syncope DX:Syncope Vitamin D deficiency DX:Vitamin D deficiency Alkaline phosphatase raised DX:A lkaline phosphatase raised Bone lesion DX:Bone lesion; COMMENT: Iliac bone lesion left ct Tick bite DX:Tick bite Upper respiratory infection DX:U pper respiratory infection Viridans streptococci infection DX:Viridans streptococci infection; COMMENT: bacteremia Family History Medical History Relation Name Comments COPD Father Hypertension Father Bladder Cancer Mother Hypertension Paternal Grandmother Stroke Paternal Grandmother Asthma Sister Cervical cancer Sister Relation Name Status Comments Father Mother Paternal Grandmother Sister Social History Tobacco Use Types Packs/Day Years Used Date Smoking Tobacco: Former Smokeless Tobacco: Never Alcohol Use Standard Drinks/Week Comments Yes 0 (1 standard drink = 0.6 oz pur e alcohol) socially Comments Unknown Sex and Gender Information Value Date Recorded Sex Assigned at Not on file Legal Sex Female 11:37 AM EST Gender Identity Not on file Sexual Orientation Not on file Obstetrics History Last Filed Vital Signs Vital Sign Reading [...] Mass Index 24.69 04/11/2024 9:59 AM EST Plan of Treatment Health Maintenance Due Date Last Done Comments Breast Cancer Screening 1971 Hepatitis B Vaccines (1 of 3 - 19+ 3-dose series) 1990 Cervical Cancer Screening: Pap Smear 1992 Pneumococcal Vaccine: 50+ Years (1 of 1 - PCV) 2021 Zoster Vaccines (1 of 2) 2021 DTaP,Tdap,and Td Vaccines (3 - Td or Tdap) 02/04/2022 08/04/2021, 11/23/2016 Cholesterol Screening (Lipid Panel) 02/07/2022 Colorectal Cancer Screening: Colonoscopy 02/07/2022 Depression Screening 02/07/2022 HIV Screening 02/07/2022 Hepatitis C Screening 02/07/2022 Social Influencers of Health Screening 02/07/2022 COVID-19 Vaccine ( season) 2023 12/08/2021, 02/25/2021, 05/20/2020, Additional history exists Influenza Vaccine Completed 01/02/2024, , 11/17/2021, Additional history exists HIB Vaccines Aged Out No longer eligi ble based on patient's age to complete this topic HPV Vaccines Aged Out No longer eligi ble based on patient's age to complete this topic Hepatitis A Vaccines Aged Out No long er eligible based on patient's age to complete this topic IPV Vaccines Aged Out No longer eligi ble based on patient's age to complete this topic MMR Vaccines Aged Out No longer eligi ble based on patient's age to complete this topic Meningococcal ACWY Vaccine Aged Out N o longer eligible based on patient's age to complete this topic Meningococcal B Vacine Aged Out No lo nger eligible based on patient's age to complete this topic Pneumococcal Vaccine: Pediatrics (0 to 5 Years) and At-Risk Patients (6 to 64 Years) Aged Out No longer eligible based on patient's age to complete this topic RSV Immunization Patients Under 20 months Aged Out No longer eligible based on patient's age to complete this topic Varicella Vaccines Aged Out No longer eligible based on patient's age to complete this topic Insurance [facility] Care Teams Ice Cream Machine Operator Relationship Specialty Start Date End Date Freeman Farley DO [address] [place] [address] PCP - General 11/14/23
--- OUTSIDE RECORDS SUMMARY | 2024-04-22 09:44 | XMS_ITS | Continuity of Care Document ---
Author Organization [facility] Address [address] [place] [address]- Care Team Providers Care Senior Designer/Art Director Name Role Phone Freeman Farley DO Primary Care Physician Encounter [facility] Date(s): 02/26/24 - 03/27/24 [facility] [address] [place], [place] [address] Encounter Type: Triage Allergies, Adverse Reactions, Alerts [...] n 1Result Comment: Flu Regular Dose ND: 09118-512-49 2Result Comment: [id number] Check list done 3Result Comment: [11/29/2016] RECIEVED AT [facility] [place] 4Result Comment: [12/03/2014] GIVEN AT [facility] 5Admin Note: [facility] 6Result Comment: [02/23/2017] [facility]:[id number] 7Admin Note: left deltoid Problem List Condition [...] 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 Social History Social History Type Response Smoking Status Former smoker; Type: Cigarettes; Number of years: 19; Total pack years: 15; Started at age: 16; Stopped at age: 37; entered on: 02/10/14 Sex Sex Representation Female (finding) Patient Care team information Care Team Personnel Name: Michelle Paiz RN Position: [facility] RN Member Role: Primary Care Nurse Name: Destiney Toscano RN Position: [facility] ED RN W/OE and Tasks Member Role: Primary Care Nurse Name: Betty Vivar RN Position: [facility] ED RN W/OE and Tasks Member Role: Primary Care Nurse Name: Arlyn Mcgovern RN Position: [facility] OB RN Member Role: Primary Care Nurse Name: Freeman Farley DO Position: [facility] Physician - Primary Care Member Role: PCP Address: [address] [place] [address]- Telecom: Name: Jo Ann Aggarwal MD Position: [facility] HARBOUR MASTER MD Member Role: Lifetime HARBOUR MASTER Physician Address: [address] [place] [address]'s [facility] [place] [address]- [place] Telecom: Care Team Related Persons Name: GERDA SALDIVAR Insurance Providers [facility]or [facility] Plan Information #: 1 Payer: HMO BLUE IN NETWORK Member Number: NA Policy Number: NA Group Number: NA
--- OUTSIDE RECORDS SUMMARY | 2024-04-22 09:44 | XMS_ITS | Encounter Summary ---
Author Organization [facility] Address [address] [place] [address] Care Team Providers Care Gang Saw Operator Name Role Phone Freeman Farley DO Primary Care Provider [phone] Reason for Visit * Reason Onset Date Comments Medical Records 04/11/2024 Encounter Details Date Type Department Care Team (Late st Contact Info) Description 04/11/2024 Telephone [facility] Cardiology [address] [place] [address] Freeman Farley DO [address] [place] [address] Medical Records Social History Tobacco Use Types Packs/Day Years [...] on file documented as of this encounter Progress Notes * Olimpia Sosa - 04/11/2024 1:50 PM EST Gave Fidelia at [facility] Cardiac Surg 04/11/2024 Office Note, 11/01/2023 Stress Test Report, 10/19/2023 TEERep[place]/CD and 08/27/2023 Echo Report/CD on 04/11/2024 documented in this encounter Plan of Treatment Not on file documented as of this encounter Visit Diagnoses Not on filedocumented in this encounter Care Teams Gang Saw Operator Relationship Specialty Start Date End Date [facility] [place] [place] PCP - General 11/14/23 documented as of this encounter
--- OUTSIDE RECORDS SUMMARY | 2024-04-22 09:44 | XMS_ITS | Continuity of Care Document ---
Author Organization [facility] Juanpablo lt Address [address] [place] [address]- Care Team Providers Care Check Examiner Name Role Phone Freeman Farley DO Primary Care Physician [phone] [id number]14[facility] - 04/21/24 [facility] Adult [address] [place] [address]- Encounter Diagnosis Non-productive cough(Discharge Diagnosis) - 04/14/24 Pain in left ear(Discharge Diagnosis) - 04/14/24 Attending Physician: Not on Staff, Attending MD Encounter Type: Office Visit Allergies, Adverse Reactions, Alerts Substance Criticality Severity [...] n 1Result Comment: Flu Regular Dose ND: [id number] 2Result Comment: [id number] Check list done 3Result Comment: [11/29/2016] RECIEVED AT [facility] [place] 4Result Comment: [12/03/2014] GIVEN AT [facility] [place] 5Admin Note: [facility] 6Result Comment: [02/23/2017] [facility]:[id number] 7Admin Note: left deltoid Problem List Condition [...] 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 Diagnosis Diagnosis Type Effective Dates Health Status Cl inical Service Informant Non-productive cough Discharge Diagnosis 04/14/24 Pain in left ear Discharge Diagnosis 04/14/24 Vital Signs Most recent to oldest [Reference Range]: 1 Height 167.6 cm (04/14/24 3:06 PM) Weight 70.8 kg (04/14/24 3:06 PM) Oxygen Saturation [94-100 %] 98 % (04/14/24 3:06 PM) Pulse Rate [55-90 bpm] 69 bpm (04/14/24 3:06 PM) Body Mass Index [18.5-24.99 kg/m2] 25.2 kg/m2 *H* (04/14/24 3:06 PM) Blood Pressure [90-138/55-84 mm Hg] 118/ 76mm Hg (04/14/24 3:06 PM) Temperature [96.8-100.4 DegF] 99.1 DegF (04/14/24 3:06 PM) Blood pressure sites Arm, left (04/14/24 3:06 PM) Temperature Route Oral (04/14/24 3:06 PM) Weight Obtained Via Standing scale (04/14/24 3:06 PM) Social History Social History Type Response Smoking Status Former smoker; Type: Cigarettes; Number of years: 19; Total pack years: 15; Started at age: 16; Stopped at age: 37; entered on: 02/10/14 Sex Sex Representation Female (finding) Patient Care team information Care Team Personnel Name: Michelle Paiz RN Position: [facility] RN Member Role: Primary Care Nurse Name: Destiney Toscano RN Position: [facility] ED RN W/OE and Tasks Member Role: Primary Care Nurse Name: Betty Vivar RN Position: [facility] ED RN W/OE and Tasks Member Role: Primary Care Nurse Name: Arlyn Mcgovern RN Position: [facility] OB RN Member Role: Primary Care Nurse Name: Freeman Farley DO Position: [facility] Physician - Primary Care Member Role: PCP Address: [address] [place] [address]- [place] Telecom: Name: Jo Ann Aggarwal MD Position: [facility] CROP GRAIN OR LIVESTOCK FARM MANAGER Member Role: Lifetime CROP GRAIN OR LIVESTOCK FARM MANAGER Physician Address: [address] [place] [address]'s [facility] [employer] [place] [address]- [place] Telecom: Care Team Related Persons Name: BOMBARDIER, GERDA O Insurance Providers Guarantor name: MARY SALDIVAR Health Plan Information #: 1 Payer: HMO BLUE IN NETWORK Member Number: [id number] Policy Number: NA Group Number: [id number] Health Plan Information #: 2 Payer: HMO BLUE IN NETWORK Member Number: [id number] Policy Number: NA Group Number: NA
[2024-04-22 09:50] VITALS: PULSE 67; RESP 16; O2SAT 100
[2024-04-22] MEDS: Albuterol/Iprat 2.5/0.5MG 3 ML AMPUL.NEB INHALE (09:50)
[2024-04-22 10:47] VITALS: BP 112/67; PULSE 70; RESP 16; TEMP 36.9
== END 2024-04-22 10:56 | disposition home or self-care (01) ==
PROVIDERS: Emergency Provider Emergency Medicine; PCP Family Medicine
DX: J18.9 Pneumonia, unspecified organism (principal); J10.1 Influenza due to other identified influenza virus with other respiratory manifestations; R06.02 Shortness of breath; M79.10 Myalgia, unspecified site; Z03.818 Encounter for observation for suspected exposure to other biological agents ruled out
CPT/HCPCS: 0241U; 71046; 94640; 99283; 99284

== ENCOUNTER → 2024-04-22 05:50 | Outpatient (BNV) | payer BC, SELFPAY | PROVIDERS: Visit Provider Radiology Vascular & Interventional Radiology | DX: R06.02 Shortness of breath (principal) | CPT/HCPCS: 71046 ==